=== PATIENT | male | born 1995 | race Hispanic/Latino ===

== ENCOUNTER 2022-12-14 11:22 | Emergency (ER) | payer OTHER ==
[~2022-12-14] VITALS: Ht 167.6 cm; Wt 83.9 kg
[2022-12-14] MEDS ORDERED: IBUPROFEN600 MG PO (15:16)
[2022-12-14] MEDS ORDERED: METHOCARBAMOL750 MG PO (15:16)
== END 2022-12-14 15:25 | disposition home or self-care (01) ==
LOC: ER 11:39
DX: S16.1XXA Strain of muscle, fascia and tendon at neck level, initial encounter (principal); M25.511 Pain in right shoulder; W20.8XXA Other cause of strike by thrown, projected or falling object, initial encounter
CPT/HCPCS: 72125; 99283